=== PATIENT | female | born 1950 | race Caucasian/White ===

== ENCOUNTER 2017-11-18 12:39 | Emergency (ER) | payer OTHER ==
[2017-11-18 12:46] VITALS: BP 147/82; PULSE 71; RESP 16; TEMP 98.2; O2SAT 97
--- NOTE | 2017-11-18 13:09 | EDPHY ---
H & P Time Seen by Provider: 11/18/17 12:42 HPI/ROS: HPI Left foot injury. 66-year-old female by private vehicle. This patient reports that she stepped awkwardly inverting her left foot. She complains of isolated pain to the proximal dorsal lateral aspect of the left mid foot. She is able to bear weight on it but with some discomfort. Denies ankle pain. No other injury or complaint. ROS: Constitutional: No fever, no chills. No weakness. Musculoskeletal: As above. Skin: No lacerations or abrasions. Neurological: No focal weakness or altered sensation. Past medical history: Hypertension, bilateral knee replacements, hysterectomy. Social history: Nonsmoker. No alcohol. Here with her . Physical Exam: General Appearance: Alert, no distress. This patient is responding to questions appropriately and in full sentences. This patient appears well- hydrated and well-nourished. Eyes: Pupils equal and round no pallor or injection. No lid edema, erythema or injection. Left foot and ankle exam: She has tenderness on palpation over the dorsal mid lateral aspects of the foot. No bony step-off or deformity noted on palpation of this area. No soft tissue swelling, ecchymosis, erythema or warmth noted. No tenderness on palpation over the lateral and medial malleolus of the ankle. She does not have significant pain on axial compression of her toes and metatarsals. The left foot is neurovascularly intact. Neurological: Motor sensory function is grossly intact. Cranial nerves are normal. Skin: Warm and dry, no rashes. Extremities are symmetrical. All joints range without pain or impingement except noted. Psychiatric: No agitation. No depression. Database: EKG: Imaging: Left foot x-ray series: Significant for transverse fractures with minimal displacement metatarsal neck 4 and 5. Interpreted by me. Procedures: Emergency department course: Vital signs reviewed. Patient given 600 mg of ibuprofen. She was sent for imaging as above. 2:20 p.m., patient re-evaluated. Discussed results of x-rays and diagnosis with her. She was fitted with a rigid orthopedic boot. She was provided with crutches and instructed on nonweightbearing to her left foot. She will follow up with Orthopedics this week for re-evaluation and further management. Return to emergency department precautions reviewed. All of her questions were answered. She was discharged in good condition. Differential Diagnosis: The differential diagnosis on this patient includes but is not limited to left foot sprain, metatarsal fracture. This represents a partial list of diagnoses considered. These considerations are based on history, physical exam, past history, reassessment and diagnostic testing. Smoking Status: Never smoked Constitutional: Initial Vital Signs Temperature (C) 36.8 C 11/18/17 12:43 Heart Rate 71 11/18/17 12:43 Respiratory Rate 16 11/18/17 12:43 Blood Pressure 147/82 H 11/18/17 12:43 O2 Sat (%) 97 11/18/17 12:43 O2 Delivery Mode Room Air Allergies/Adverse Reactions: sulfamethoxazole [From Bactrim] Allergy (Severe, Verified 11/18/17 12:46) Hives trimethoprim [From Bactrim] Allergy (Severe, Verified 11/18/17 12:46) Hives Home Medications: Medication Instructions Recorded Benicar 04/28/15 Prozac 10 MG (RX) 04/28/15 PHOSLO 11/04/15 Vit B Comp/E/FA/Soybean/Hb 143 11/04/15 [Estronatural Tablet] Departure - Departure Disposition: [facility] Inpatient Acute Clinical Impression: Foot fracture, left, Metatarsal stress fracture of left foot Condition: Good Instructions: Foot Fracture in Adults (ED) Additional Instructions: Read and follow provided instructions. Follow-up with Orthopedics, Dr. Serrano or 1 of his partners, this week for re- evaluation and further management. Ibuprofen dosin mg every 6 hours with meals for the next 3 days only. Your to be nonweightbearing to your left foot until seen on follow-up by Orthopedics. Return to the emergency department for worsening pain, discoloration, swelling or other serious concerns. Referrals: Geraldo Serrano MD [Medical Doctor] - As per Instructions
== END 2017-11-18 14:55 | disposition home or self-care (01) ==
LOC: CED 12:39
DX: S92.352A Displaced fracture of fifth metatarsal bone, left foot, initial encounter for closed fracture (principal); I10 Essential (primary) hypertension; X50.9XXA Other and unspecified overexertion or strenuous movements or postures, initial encounter
CPT/HCPCS: 73630; 99283; L4386

== ENCOUNTER → 2018-03-28 | Outpatient (CLI) | payer OTHER | LOC: FIMAGING 16:22 | PROVIDERS: ATTEND Family Medicine | DX: Z12.31 Encounter for screening mammogram for malignant neoplasm of breast (principal) ==